=== PATIENT | male | born 1980 | race Caucasian/White ===

== ENCOUNTER 2024-08-11 10:05 | Emergency (ER) | payer OTHER, SELFPAY ==
[2024-08-11 10:19] VITALS: BP 133/89; PULSE 78; RESP 16; TEMP 36.3; O2SAT 100
--- NOTE | 2024-08-11 10:31 | ED.URI ---
HPI - URI/Sore Throat General Chief Complaint: Upper Respiratory Infection Stated Complaint: SINUS Time Seen by Provider: 08/11/24 10:30 Source: patient Mode of arrival: ambulatory Limitations: no limitations History of Present Illness HPI Narrative: presents today complaining nasal congestion and cough since Thursday. He also started with body aches and fever yesterday. He is not taking anything over the counter. Denies shortness of breath or difficulty swallowing. Related Data Allergies Allergy/AdvReac Type Severity Reaction Status Date / Time No Known Allergies Allergy Unverified 08/11/24 10:24 Review of Systems Review of Systems: CONSTITUTIONAL: Denies sweats. Reports fever and body aches. EYES: Denies visual changes, redness, or discharge. ENT: Reports rhinorrhea and congestion. Denies sore throat or otalgia. CARDIOVASCULAR: Denies chest pain, palpitations, or edema. RESPIRATORY: Reports cough. Denies Dyspnea. GASTROINTESTINAL: Denies abdominal pain, nausea, vomiting. Reports diarrhea. GENITOURINARY: Denies dysuria or hematuria. SKIN: Denies rash, itching, or wounds. MUSCULOSKELETAL: Denies back pain, joint pain, or myalgia. NEUROLOGIC: Denies headache, numbness, tingling, or weakness. PSYCH: Denies depression or anxiety. All systems reviewed & are unremarkable except as noted in HPI and below PMFSH Comments At time of signature, I have reviewed and agree with nursing past medical, surgical, social and family history unless otherwise noted. Please see nursing chart for further information. There is no relevant family history pertinent to the presenting complaint. Exam Narrative: GENERAL: Well-appearing, well-nourished, and in no acute distress. EYES: EOMI. No redness or drainage. Conjunctivae normal. ENT: Mucous membranes pink and moist. Nares clear. Rhinorrhea noted. TMs intact with fluid bilaterally, no bulging or erythema. Throat Erythematous, no tonsillar exudate, uvula midline. Nasal congestion noted. NECK: Normal AROM. Supple. No lymphadenopathy. CHEST: No respiratory distress. Clear to auscultation. HEART: Regular rate and rhythm. No murmur appreciated. Normal peripheral pulses. ABDOMEN: Soft, nontender, nondistended, normal active bowel sounds. SKIN: Warm, dry, no rash. Capillary refill normal. Normal skin turgor. NEURO: No focal deficits. Alert and oriented x3. Gait steady. PSYCH: Normal affect. No signs of depression or anxiety. Course Course Level of Care: Express Care Visit Vital Signs Vital signs: Vital Signs Temperature 97.4 F L 08/11/24 10:19 Pulse Rate 78 08/11/24 10:19 Respiratory Rate 16 08/11/24 10:19 Blood Pressure 133/89 08/11/24 10:19 Pulse Oximetry 100 08/11/24 10:19 Temperature 97.4 F L 08/11/24 10:19 Pulse Rate 78 08/11/24 10:19 Respiratory Rate 16 08/11/24 10:19 Blood Pressure 133/89 08/11/24 10:19 Pulse Oximetry 100 08/11/24 10:19 Reviewed. MDM - URI/Sore Throat MDM Narrative Medical decision making narrative: Discussed physical exam findings. Advised supportive measures and signs/symptoms to go to the ER. Pt is appropriate for outpt treatment and follow up. Differential Diagnosis Differential diagnosis: Likely upper respiratory infection, sinusitis, viral infection, bronchitis, influenza, pharyngitis and other (strep) Critical Care Time Critical Care Time Critical Care Time: No Discharge Plan Discharge Clinical Impression: Influenza Patient Disposition: Home Condition: Stable Instructions: Influenza (ED) Additional Instructions: You tested positive for Influenza. You should avoid crowds until you are fever free for 24 hours without the use of fever reducing medications, or the symptoms are improved Rest. Drink plenty of fluids. Tylenol every 8 hours as needed for pain/fever Recommend Flonase spray and Zyrtec (or Claritin/Dayanara) for sinus pressure/congestion over the counter Cough syrup may cause drowsiness; avoid driving or take it at night time. Follow up with your primary care provider as needed in 1-2 weeks Go to the ER for worsening symptoms or concerns Patient Language: [place]ian Follow-up/Referrals: LORENA,KENIA RODGERS [Primary Care Provider] - Time of Disposition: 10:33
[2024-08-11 10:40] LABS: EDINFLUASCREEN Negative (Negative); EDINFLUBSCREEN Positive (Negative); EDSTREPNEGPOS1 Negative (Negative)
== END 2024-08-11 10:42 | disposition home or self-care (01) ==
PROVIDERS: Nurse Practitioner Family; PCP Nurse Practitioner Family
DX: J10.1 Influenza due to other identified influenza virus with other respiratory manifestations (principal)
CPT/HCPCS: 87081; 87804; 87880; 99213; G0463